=== PATIENT | female | born 1965 | race Caucasian/White ===

== ENCOUNTER 2017-01-04 00:37 | Emergency (ER) | payer OTHER ==
[~2017-01-04] VITALS: Ht 154.9 cm; Wt 55.0 kg
[2017-01-04 00:46] VITALS: BP 121/68; PULSE 89; RESP 16; TEMP 98.9; O2SAT 96
--- NOTE | 2017-01-04 00:55 | PD ---
HPI Chief Complaint: Psychiatric Symptoms Time Seen by Provider: 00:54 Travel History International Travel<30 days: No Contact w/Intl Traveler<30days: No Traveled to known affect area: No History of Present Illness HPI Patient comes in under [place] act by police for being order mentally unstable and trying to injure herself by stabbing her left hand with a pair scissors. Patient denies any suicidal or homicidal ideations. Denies any medical concerns at this time. Denies any chest pain, shortness of breath, fevers, abdominal pain, nausea, vomiting, or headaches. Patient is uncertain of her last tetanus shot. PFSH Past Medical History Bipolar Disorder: Yes Diminished Hearing: No Tetanus Vaccination: > 5 Years Influenza Vaccination: No ?: Not LMP: UNK-MENAP Past Surgical History Surgical History: No Previous Surgery Social History Alcohol Use: No Tobacco Use: Yes (1PPD) Substance Use: No (DENIES) Allergies-Medications (Allergen,Severity, Reaction): Coded Allergies: No Known Allergies (Unverified , 01/04/17) Reported Meds & Prescriptions Reported Meds & Active Scripts Active No Active Prescriptions or Reported Medications Review of Systems Except as stated in HPI: all other systems reviewed are Neg Physical Exam Narrative GENERAL: Well-developed, well nourished, in no acute distress, and non-ill appearing. SKIN: Warm and dry. Superficial abrasion noted on the palmar surface of left hand. HEAD: Atraumatic. Normocephalic. EYES: Pupils equal and round. EOMI. No scleral icterus. No injection or drainage. ENT: No nasal bleeding or discharge. Mucous membranes pink and moist. NECK: Trachea midline. Supple. No nuclear rigidity. CARDIOVASCULAR: Regular rate and rhythm. No murmur appreciated. RESPIRATORY: No accessory muscle use. No respiratory distress. Clear to auscultation. Breath sounds equal bilaterally. MUSCULOSKELETAL: No obvious deformities. No clubbing. No cyanosis. No edema. Full range of motion. NEUROLOGICAL: Awake and alert. No obvious cranial nerve deficits. Motor grossly within normal limits. Normal speech. PSYCHIATRIC: Appropriate mood and affect. Data Data Last Documented VS Vital Signs Date Time Temp Pulse Resp B/P Pulse Ox O2 Delivery O2 Flow Rate FiO2 01/04/17 00:50 16 01/04/17 00:46 98.9 89 121/68 96 Orders Complete Blood Count With Diff (01/04/17 00:48) Comprehensive Metabolic Panel (01/04/17 00:48) Psych Screen (01/04/17 00:48) Drug Screen, Random Urine (01/04/17 00:48) Alcohol (Ethanol) (01/04/17 00:48) Salicylates (Aspirin) (01/04/17 00:48) Tylenol (Acetaminophen) (01/04/17 00:48) Urinalysis - C+S If Indicated (01/04/17 00:48) Wound Care (01/04/17 00:53) Tetanus/Diphtheria Tox Adult (Tetanus/Di (01/04/17 01:00) Labs Laboratory Tests Test 01/04/17 01/04/17 00:58 01:20 White Blood Count 7.0 TH/MM3 Red Blood Count 3.74 MIL/MM3 Hemoglobin 12.0 GM/DL Hematocrit 34.0 % Mean Corpuscular Volume 90.9 FL Mean Corpuscular Hemoglobin 32.0 PG Mean Corpuscular Hemoglobin 35.2 % Concent Red Cell Distribution Width 13.8 % Platelet Count 186 TH/MM3 Mean Platelet Volume 7.4 FL Neutrophils (%) (Auto) 93.7 % Lymphocytes (%) (Auto) 4.4 % Monocytes (%) (Auto) 1.2 % Eosinophils (%) (Auto) 0.5 % Basophils (%) (Auto) 0.2 % Neutrophils # (Auto) 6.5 TH/MM3 Lymphocytes # (Auto) 0.3 TH/MM3 Monocytes # (Auto) 0.1 TH/MM3 Eosinophils # (Auto) 0.0 TH/MM3 Basophils # (Auto) 0.0 TH/MM3 CBC Comment DIFF FINAL Differential Comment Sodium Level 137 MEQ/L Potassium Level 3.3 MEQ/L Chloride Level 105 MEQ/L Carbon Dioxide Level 24.5 MEQ/L Anion Gap 8 MEQ/L Blood Urea Nitrogen 14 MG/DL Creatinine 1.14 MG/DL Estimat Glomerular Filtration 50 ML/MIN Rate Random Glucose 108 MG/DL Calcium Level 7.8 MG/DL Total Bilirubin 0.2 MG/DL Aspartate Amino Transf 20 U/L (AST/SGOT) Alanine Aminotransferase 14 U/L (ALT/SGPT) Alkaline Phosphatase 75 U/L Total Protein 7.5 GM/DL Albumin 3.2 GM/DL Salicylates Level 3.0 MG/DL Acetaminophen Level LESS THAN 2.0 MCG/ML Ethyl Alcohol Level LESS THAN 3 MG/DL Urine Color COLORLESS Urine Turbidity CLEAR Urine pH 5.5 Urine Specific [employer] 1.002 Urine Protein NEG mg/dL Urine Glucose (UA) NEG mg/dL Urine Ketones NEG mg/dL Urine Occult Blood NEG Urine Nitrite NEG Urine Bilirubin NEG Urine Urobilinogen LESS THAN 2.0 MG/DL Urine Leukocyte Esterase NEG Urine Bacteria RARE /hpf Urine Mucus FEW /lpf Microscopic Urinalysis Comment CULT NOT INDICATED MDM Medical Decision Making Medical Screen Exam Complete: Yes Emergency Medical Condition: Yes Differential Diagnosis Homicidal, suicidal, bipolar, abrasion, laceration, contusion, other Narrative Course Patient was seen and examined. Labs were obtained and reviewed. Patient medically cleared for further treatment and evaluation by psych. Final disposition per psych. Diagnosis Primary Impression: Abrasion hand Additional Impression: Hypokalemia Patient Instructions: Abrasion (ED), General Instructions, Hypokalemia (ED) Additional Instructions: Follow-up with your primary care physician this week for reevaluation. Keep wound dry and clean as possible using soap and water. Use Neosporin to promote healing. Return to the emergency department if symptoms get worse. Scripts No Active Prescriptions or Reported Meds Condition: Stable Jeff Patel Jan 04, 2017 00:55
[2017-01-04] MEDS ORDERED: TETANUS/DIPHTHERIA TOXOID ADULT 0.5 ML VIAL IM ONE (01:00)
[2017-01-04 02:39] LABS: AUTOMATED NEUTROPHIL # 6.5 TH/MM3 (1.8-7.7); BASOPHIL % 0.2 % (0.0-2.0); EOSINOPHIL % 0.5 % (0.0-4.0); HEMO FLAGS DIFF FINAL; LYMPH % 4.4 % (9.0-44.0); LYMPHOCYTE # 0.3 TH/MM3 (1.0-4.8); MEAN CELL VOLUME 90.9 FL (80.0-100.0); MEAN CORPUSCULAR HGB CONC 35.2 % (32.0-36.0); MONO % 1.2 % (0.0-8.0); NEUT % 93.7 % (16.0-70.0); PLATELET COUNT 186 TH/MM3 (150-450); RED BLOOD COUNT 3.74 MIL/MM3 (4.00-5.30); RED CELL DISTRIBUTION WIDTH 13.8 % (11.6-17.2)
[2017-01-04 02:49] LABS: BACTERIA, URINE RARE /hpf; BLOOD, URINE NEG (NEG); COMMENT (UR) CULT NOT INDICATED; CULTURE IF INDICATED CULT NOT INDICATED; GLUCOSE,URINE NEG (NEG); KETONE, URINE NEG (NEG); MUCUS URINE FEW /lpf (OCC); NITRITE,URINE NEG (NEG); PH, URINE 5.5 (5.0-8.5); URINE COLOR COLORLESS (YELLW/STRAW)
[2017-01-04 02:57] LABS: BLOOD UREA NITROGEN 14 MG/DL (7-18); GLOMERULAR FILTRATION RATE 50 ML/MIN (>89)
[2017-01-04 02:58] LABS: ALKALINE PHOSPHATASE 75 U/L (45-117); ALT (GPT) 14 U/L (10-53); ANION GAP 8 MEQ/L (5-15); AST (GOT) 20 U/L (15-37); BICARBONATE 24.5 MEQ/L (21.0-32.0); CHLORIDE 105 MEQ/L (98-107); POTASSIUM 3.3 MEQ/L (3.5-5.1); SODIUM (NA) 137 MEQ/L (136-145); TOTAL BILIRUBIN ADULT 0.2 MG/DL (0.2-1.0)
[2017-01-04 02:59] LABS: ACETAMINOPHEN LESS THAN 2.0 MCG/ML (10.0-30.0)
[2017-01-04] MEDS ORDERED: POTASSIUM CHLORIDE 20 MEQ CONTROLLED RELEASE TAB PO ONE (03:30)
[2017-01-04 03:33] LABS: AMPHETAMINE, URINE NEG (NEG); BARBITURATES, URINE NEG (NEG); COCAINE, URINE NEG (NEG)
[2017-01-04 06:27] VITALS: BP 117/64; PULSE 65; RESP 16; O2SAT 98
[2017-01-04 11:04] VITALS: BP 89/52; PULSE 81; RESP 18; O2SAT 100
== END 2017-01-04 13:39 ==
LOC: NEPA 00:37 → NEPJ 13:39
DX: S60.512A Abrasion of left hand, initial encounter (principal); E87.6 Hypokalemia; F17.200 Nicotine dependence, unspecified, uncomplicated; Z23 Encounter for immunization; Z86.59 Personal history of other mental and behavioral disorders; Y28.8XXA Contact with other sharp object, undetermined intent, initial encounter
CPT/HCPCS: 80053; 80307; 81001; 85025; 90471; 90714